=== PATIENT | female | born 1995 | race Caucasian/White ===

== ENCOUNTER 2022-05-12 03:23 | Emergency (ER) | payer OTHER ==
[~2022-05-12] VITALS: Ht 157.5 cm; Wt 65.8 kg
== END 2022-05-12 06:54 | disposition home or self-care (01) ==
LOC: ED 03:23
DX: T74.21XA Adult sexual abuse, confirmed, initial encounter (principal)
CPT/HCPCS: 80053; 84703; 85025; 86706; 86707; 99284; A9270

== ENCOUNTER 2024-09-17 16:21 | Emergency (ER) | payer OTHER ==
[~2024-09-17] VITALS: Ht 157.5 cm; Wt 66.5 kg
--- OUTSIDE RECORDS SUMMARY | 2024-09-17 16:25 | XMS ---
PreManage Notification: MICHELLE RODRIGUEZ Security Clam Shucker Events No recent Security Events currently on file CRITERIA MET - [facility] - 2 Visits in 30 Days CARE PROVIDERS MIKKI MULLER Community Health Worker 01/25/2023-Current PHONE: [phone] [facility] Current CARE SYSTEM \F\ <UNAVAIL> PHONE: [phone] Michael has no Care Guidelines for this patient. E.Faisal. VISIT COUNT (12 MO.) [address] TOTAL 4 NOTE: Visits indicate total known visits. ED/UCC VISIT TRACKING (12 MO.) 09/17/2024 16:21 [facility] TYPE: Emergency COMPLAINT: - OD 09/07/2024 09:49 [facility] [place] TYPE: Emergency DIAGNOSES: - Other specified related conditions, unspecified trimester - Unspecified abdominal pain - Vaginal cramping - 10wk OB 05/04/2024 22:56 [facility] [place] TYPE: Emergency DIAGNOSES: - Acute cystitis with hematuria - BLood in Urine 11/20/2023 13:27 [facility] [place] TYPE: Emergency DIAGNOSES: - Foreign body of alimentary tract, part unspecified, initial encounter - Other psychoactive substance abuse, uncomplicated - INGESTION INPATIENT VISIT TRACKING (12 MO.) No inpatient visits to display in this time frame [email or web address]
[2024-09-17] MEDS ORDERED: NALOXONE HCL IV SCH (16:30)
[2024-09-17] MEDS ORDERED: DEXTROSE 5% IV SCH (16:30)
[2024-09-17] MEDS ORDERED: NALOXONE HCL 4 MG in DEXTROSE 5% 250 ML IV SCH (16:30)
[2024-09-17 16:32] LABS: BASOPHILS 0.7 % (0.1-1.2); EOSINOPHILS 1.8 % (0.7-5.8); HEMATOCRIT 35.1 % (34.1-44.9); HEMOGLOBIN 11.6 g/dL (11.2-15.7); LYMPHOCYTES 31.2 % (19.3-51.7); MCH 29.1 PG (25.6-32.2); MCV 88.2 fL (79.4-94.8); MONOCYTES 6.7 % (4.7-12.5); NEUTROPHILS 59.1 % (34.0-71.1); PLATELET COUNT 282 K/uL (182-369); RBC 3.98 M/uL (3.93-5.22)
[2024-09-17] MEDS ORDERED: PRENATE ELITE1 EAC2 PO (16:44)
[2024-09-17 16:45] LABS: ALBUMIN 3.2 g/dL (3.4-5.0); ALBUMIN/GLOBULIN RATIO 0.97 (1.1-2.4); ANION GAP 11.2 (7-21); BILIRUBIN, TOTAL 0.3 mg/dL (0.2-1.0); BUN/CREATININE RATIO 13.82 (6.0-28.6); CALCIUM 8.9 mg/dL (8.5-10.1); CREATININE, SERUM 0.94 mg/dL (0.55-1.02); POTASSIUM 4.2 mmol/L (3.5-5.1); PROTEIN, TOTAL 6.5 g/dL (6.4-8.2)
[2024-09-17] MEDS ORDERED: NALOXONE HCL 2 MG/2 ML SYR NAS ONE (16:45)
[2024-09-17] MEDS ORDERED: NALOXONE HCL 2 MG/2 ML SYR IV ONE (16:45)
[2024-09-17] MEDS ORDERED: SODIUM CHLORIDE 0.9% 1,000 ML IV PRN (16:45)
[2024-09-17 19:26] VITALS: BP 128/110
[2024-09-17] MEDS ORDERED: NALOXONE 4 MG NASAL SPRAY #2 HOME.PACK NAS ONE ×2 (19:30)
== END 2024-09-17 19:35 | disposition home or self-care (01) ==
LOC: ED 16:21
PROVIDERS: Emergency Medicine
DX: O9A.211 Injury, poisoning and certain other consequences of external causes complicating pregnancy, first trimester (principal); T40.2X2A Poisoning by other opioids, intentional self-harm, initial encounter; Z3A.12 12 weeks gestation of pregnancy; Z79.899 Other long term (current) drug therapy
CPT/HCPCS: 36415; 80053; 85025; 96374; 99284-25; J2310; J3490; J7030